=== PATIENT | female | born 1980 | race Caucasian/White ===

== ENCOUNTER 2018-01-19 00:48 | Emergency (ER) | payer MEDICARE, BC ==
[~2018-01-19] VITALS: Ht 172.7 cm; Wt 66.8 kg
[2018-01-19 00:50] VITALS: TEMP 97.6
[2018-01-19 01:22] LABS: COLLECTION METHOD CLEAN CATCH
[2018-01-19 01:26] LABS: BASO % 0.5 % (0.0-2.0); EOS # 0.2 (0.0-0.7); EOS % 3.8 % (0-4.0); GRAN % 54.7 % (42.2-75.2); LYMPH # 1.4 (1.2-3.4); LYMPH % 24.9 % (20.0-51.0); MEAN CELL VOLUME 88 fl (80.0-100.0); MEAN CORPUSCULAR HGB CONC 32 g/dl (33.0-37.0); MEAN PLATELET VOLUME 10.1 fl (7.4-10.4); MONO # 0.9 (0.1-0.6); MONO % 15.7 % (1.7-9.3); PLATELET COUNT 251 K/mm3 (130-400); RED BLOOD COUNT 4.14 M/mm3 (4.10-5.30); REDCELL DISTRIBUTION WIDTH-CV 17.2 % (11.5-14.5)
[2018-01-19 01:30] LABS: HEMATOCRIT 36.6 % (37.0-47.0); HEMOGLOBIN 11.8 g/dl (12.5-16.0); MEAN CORPUSCULAR HEMOGLOBIN 29 pg (27.0-31.0)
[2018-01-19 01:36] LABS: PH 6 (5-8); SQUAMOUS EPITHELIAL 0-2 /hpf; URINE APPEARANCE Clear; URINE BACTERIA None Seen /hpf; URINE BILIRUBIN Negative (NEGATIVE); URINE BLOOD Negative (NEGATIVE); URINE COLOR Yellow; URINE GLUCOSE Negative (NEGATIVE); URINE KETONE 1+ (NEGATIVE); URINE LEUKOCYTE ESTERASE Negative (NEGATIVE); URINE NITRATE Negative (NEGATIVE); URINE PROTEIN(semi-quant) Negative (NEGATIVE); URINE RBC 0-2 /hpf; URINE UROBILINOGEN Negative (NEGATIVE)
[2018-01-19 01:37] LABS: ALBUMIN 3.8 gm/dL (3.5-5.0); BILIRUBIN,TOTAL 0.2 mg/dL (0.0-1.0); CALCIUM 9.3 mg/dL (8.4-10.2); CREATININE, serum 0.96 mg/dL (0.52-1.25); POTASSIUM 3.7 mmol/L (3.4-5.0); TOTAL PROTEIN 7.2 gm/dL (6.4-8.2)
[2018-01-19] MEDS ORDERED: ELAVIL150 MG PO (03:21)
[2018-01-19] MEDS ORDERED: IMITREX50 MG PO (03:22)
[2018-01-19] MEDS ORDERED: TOPAMAX 100MG100 M1 PO (03:22)
[2018-01-19] MEDS ORDERED: INDERAL 10MG10 MG (03:22)
[2018-01-19] MEDS ORDERED: EPIPEN 2-PAK1 MG/ML IM (03:23)
[2018-01-19] MEDS ORDERED: PROAIR HFA0.09 MG/AC IH (03:24)
[2018-01-19] MEDS ORDERED: IPRATROPIUM BROM3 M1 IH (03:24)
[2018-01-19 04:01] VITALS: BP 117/81; PULSE 89
== END 2018-01-19 04:00 | disposition home or self-care (01) ==
LOC: COL.ER 00:48
PROVIDERS: Nurse Practitioner
DX: R10.9 Unspecified abdominal pain (principal); R30.0 Dysuria; J45.909 Unspecified asthma, uncomplicated; F32.9 Major depressive disorder, single episode, unspecified; G43.909 Migraine, unspecified, not intractable, without status migrainosus; F17.210 Nicotine dependence, cigarettes, uncomplicated; Z90.89 Acquired absence of other organs; Z90.49 Acquired absence of other specified parts of digestive tract; Z98.890 Other specified postprocedural states; Z98.84 Bariatric surgery status
CPT/HCPCS: J2405; J3010

== ENCOUNTER 2018-04-01 00:09 | Emergency (ER) | payer MEDICARE, BC ==
[~2018-04-01] VITALS: Ht 172.7 cm; Wt 65.0 kg
[~2018-04-01 00:09] MED LIST: ELAVIL150 MG PO; EPIPEN 2-PAK1 MG/ML IM; IMITREX50 MG PO; INDERAL 10MG10 MG; IPRATROPIUM BROM3 M1 IH; PROAIR HFA0.09 MG/AC IH; TOPAMAX 100MG100 M1 PO
[2018-04-01 01:52] LABS: COLLECTION METHOD CLEAN CATCH
[2018-04-01 02:04] LABS: MUCOUS Present /lpf; PH 5 (5-8); SQUAMOUS EPITHELIAL 0-2 /hpf; URINE APPEARANCE Clear; URINE BACTERIA Rare /hpf; URINE BILIRUBIN Negative (NEGATIVE); URINE BLOOD 1+ (NEGATIVE); URINE COLOR Yellow; URINE GLUCOSE Negative (NEGATIVE); URINE KETONE Negative (NEGATIVE); URINE LEUKOCYTE ESTERASE Trace (NEGATIVE); URINE NITRATE Negative (NEGATIVE); URINE PROTEIN(semi-quant) Negative (NEGATIVE); URINE RBC 0-2 /hpf; URINE UROBILINOGEN >=4.0 mg/dL (NEGATIVE)
[2018-04-01 02:14] LABS: BASO % 0.3 % (0.0-2.0); EOS # 0.2 (0.0-0.7); EOS % 3.7 % (0-4.0); GRAN # 3.7 (1.4-6.5); GRAN % 56.9 % (42.2-75.2); HEMOGLOBIN 11.4 g/dl (12.5-16.0); LYMPH % 30.7 % (20.0-51.0); MEAN CELL VOLUME 89 fl (80.0-100.0); MEAN CORPUSCULAR HEMOGLOBIN 29 pg (27.0-31.0); MEAN CORPUSCULAR HGB CONC 33 g/dl (33.0-37.0); MEAN PLATELET VOLUME 9.2 fl (7.4-10.4); MONO # 0.5 (0.1-0.6); MONO % 8.2 % (1.7-9.3); PLATELET COUNT 302 K/mm3 (130-400); RED BLOOD COUNT 3.91 M/mm3 (4.10-5.30)
[2018-04-01 02:18] LABS: HEMATOCRIT 34.6 % (37.0-47.0)
[2018-04-01 02:25] LABS: ALANINE AMINOTRANSFERASE 31 U/L (9-52); ALBUMIN 3.5 gm/dL (3.5-5.0); ALKALINE PHOSPHATASE 69 U/L (50-136); ANION GAP 11 mmol/L (7-16); AST,SGOT 40 U/L (15-37); BILIRUBIN,TOTAL 0.4 mg/dL (0.0-1.0); BLOOD UREA NITROGEN 15 mg/dL (7-17); CALCIUM 8.9 mg/dL (8.4-10.2); CARBON DIOXIDE 23 mmol/L (22-30); CHLORIDE 105 mmol/L (98-107); CREATININE, serum 0.67 mg/dL (0.52-1.25); GLUCOSE 91 mg/dL (74-106); POTASSIUM 3.4 mmol/L (3.4-5.0); SODIUM 139 mmol/L (137-145); TOTAL PROTEIN 6.6 gm/dL (6.4-8.2)
[2018-04-01 03:01] VITALS: BP 140/93; PULSE 69; TEMP 97.9
[2018-04-01 03:57] LABS: C-REACTIVE PROTEIN < 0.5 mg/dL (0.0-0.9)
== END 2018-04-01 03:07 | disposition home or self-care (01) ==
LOC: COL.ER 00:09
PROVIDERS: Nurse Practitioner
DX: R10.9 Unspecified abdominal pain (principal); G43.909 Migraine, unspecified, not intractable, without status migrainosus; F17.210 Nicotine dependence, cigarettes, uncomplicated

== ENCOUNTER 2018-12-04 12:49 | Emergency (ER) | payer MEDICARE ==
[~2018-12-04] VITALS: Ht 172.7 cm; Wt 65.9 kg
[~2018-12-04 12:49] MED LIST changes: +ASPI325T6 PO; +NEURONTIN300 MG/CAP PO; +NORVASC 5MG5 MG/TAB PO
[2018-12-04 12:54] VITALS: BP 130/81; TEMP 98
[2018-12-04] MEDS ORDERED: DOXYCYCLINE 10100 MG PO (13:36)
[2018-12-04 13:45] VITALS: PULSE 78
== END 2018-12-04 13:48 | disposition home or self-care (01) ==
LOC: COL.ER 12:49
DX: J01.90 Acute sinusitis, unspecified (principal); E11.9 Type 2 diabetes mellitus without complications; F17.210 Nicotine dependence, cigarettes, uncomplicated; I10 Essential (primary) hypertension; F32.9 Major depressive disorder, single episode, unspecified; Z98.84 Bariatric surgery status; Z98.890 Other specified postprocedural states; Z90.49 Acquired absence of other specified parts of digestive tract

== ENCOUNTER 2019-05-29 14:01 | Emergency (ER) | payer MEDICARE ==
[~2019-05-29] VITALS: Ht 172.7 cm; Wt 59.1 kg
[~2019-05-29 14:01] MED LIST changes: +DOXYCYCLINE 10100 MG PO
[2019-05-29 14:06] VITALS: BP 120/81; PULSE 72; TEMP 98.3
[2019-05-29] MEDS ORDERED: IBU800 M1 PO (14:28)
== END 2019-05-29 16:28 | disposition home or self-care (01) ==
LOC: COL.ER 14:01
DX: S63.602A Unspecified sprain of left thumb, initial encounter (principal); E11.9 Type 2 diabetes mellitus without complications; F32.9 Major depressive disorder, single episode, unspecified; F17.210 Nicotine dependence, cigarettes, uncomplicated; Z98.84 Bariatric surgery status; Z79.4 Long term (current) use of insulin; Z98.890 Other specified postprocedural states; W21.07XA Struck by softball, initial encounter; Y93.64 Activity, baseball

== ENCOUNTER 2019-06-16 01:28 | Emergency (ER) | payer MEDICARE ==
[~2019-06-16] VITALS: Ht 172.7 cm; Wt 61.4 kg
[~2019-06-16 01:28] MED LIST changes: +IBU800 M1 PO
[2019-06-16 01:32] VITALS: BP 137/95; PULSE 83
[2019-06-16 01:53] LABS: COLLECTION METHOD CLEAN CATCH
[2019-06-16 02:11] LABS: MUCOUS Present /lpf; PH 6 (5-8); SQUAMOUS EPITHELIAL 0-2 /hpf; URINE APPEARANCE Clear; URINE BACTERIA Many /hpf; URINE BILIRUBIN Negative (NEGATIVE); URINE BLOOD Negative (NEGATIVE); URINE COLOR Yellow; URINE GLUCOSE Negative (NEGATIVE); URINE KETONE Negative (NEGATIVE); URINE LEUKOCYTE ESTERASE Trace (NEGATIVE); URINE NITRATE Positive (NEGATIVE); URINE PROTEIN(semi-quant) Negative (NEGATIVE); URINE RBC 0-2 /hpf; URINE UROBILINOGEN Negative (NEGATIVE)
[2019-06-16] MEDS ORDERED: CEPHALEXIN500 M1 PO (02:28)
[2019-06-16] MEDS ORDERED: ZOFRAN ODT4 MG PO (02:28)
[2019-06-16] MEDS ORDERED: DIFLUCAN150 MG PO (02:41)
[2019-06-16 02:53] VITALS: TEMP 98.1
== END 2019-06-16 02:56 | disposition home or self-care (01) ==
LOC: COL.ER 01:28
PROVIDERS: Emergency Medicine
DX: N12 Tubulo-interstitial nephritis, not specified as acute or chronic (principal); N39.0 Urinary tract infection, site not specified; F17.210 Nicotine dependence, cigarettes, uncomplicated; I10 Essential (primary) hypertension; E11.9 Type 2 diabetes mellitus without complications; E78.5 Hyperlipidemia, unspecified; G43.909 Migraine, unspecified, not intractable, without status migrainosus; E66.9 Obesity, unspecified; Z98.84 Bariatric surgery status; Z98.890 Other specified postprocedural states; Z90.49 Acquired absence of other specified parts of digestive tract; Z68.20 Body mass index [BMI] 20.0-20.9, adult
CPT/HCPCS: J0696; J1885

== ENCOUNTER 2020-11-28 17:42 | Emergency (ER) | payer MEDICARE, MEDICAID ==
[~2020-11-28] VITALS: Ht 175.3 cm; Wt 62.7 kg
[~2020-11-28 17:42] MED LIST changes: +CEPHALEXIN500 M1 PO; +DIFLUCAN150 MG PO; +ZOFRAN ODT4 MG PO
[2020-11-28 17:52] VITALS: BP 124/89; TEMP 98.2
[2020-11-28 18:47] VITALS: PULSE 71
== END 2020-11-28 18:49 | disposition home or self-care (01) ==
LOC: COL.ER 17:42
DX: S61.217A Laceration without foreign body of left little finger without damage to nail, initial encounter (principal); Z88.2 Allergy status to sulfonamides; Z88.6 Allergy status to analgesic agent; Z88.8 Allergy status to other drugs, medicaments and biological substances; Z88.0 Allergy status to penicillin; W26.0XXA Contact with knife, initial encounter

== ENCOUNTER 2022-01-30 16:08 | Emergency (ER) | payer MEDICARE, MEDICAID ==
[~2022-01-30] VITALS: Ht 172.7 cm; Wt 64.5 kg
[2022-01-30 17:25] LABS: BASO % 0.7 % (0.0-2.0); EOS # 0.1 K/mm3 (0.0-0.7); EOS % 2.2 % (0.0-4.0); GRAN # 1.6 K/mm3 (1.4-6.5); GRAN % 58.1 % (42.2-75.2); LYMPH # 0.7 K/mm3 (1.2-3.4); LYMPH % 26.6 % (20.0-51.0); MEAN CELL VOLUME 63 fl (80.0-100.0); MEAN CORPUSCULAR HGB CONC 27 g/dl (33.0-37.0); MEAN PLATELET VOLUME 9.3 fl (7.4-10.4); MONO # 0.3 K/mm3 (0.1-0.6); PLATELET COUNT 383 K/mm3 (130-400); RED BLOOD COUNT 2.94 M/mm3 (4.10-5.30); REDCELL DISTRIBUTION WIDTH-CV 26.3 % (11.5-14.5)
[2022-01-30 17:31] LABS: HEMATOCRIT 18.5 % (37.0-47.0); MEAN CORPUSCULAR HEMOGLOBIN 17 pg (27-31)
[2022-01-30 17:32] LABS: HEMOGLOBIN 4.9 g/dl (12.5-16.0)
[2022-01-30 17:45] LABS: ALBUMIN 3.8 gm/dL (3.5-5.0); BILIRUBIN,TOTAL 0.3 mg/dL (0.2-1.2); CALCIUM 8.1 mg/dL (8.4-10.2); CREATININE, serum 0.8 mg/dL (0.57-1.11); POTASSIUM 3.8 mmol/L (3.5-4.5); TOTAL PROTEIN 6.5 gm/dL (6.2-8.1)
[2022-01-30 18:26] VITALS: BP 116/78; PULSE 72; TEMP 97.5
[2022-01-30 18:39] VITALS: BP 120/71; PULSE 77; TEMP 97.8
[2022-01-30 18:44] VITALS: BP 121/86; PULSE 79; TEMP 97.8
[2022-01-30 18:49] VITALS: BP 123/77; PULSE 81; TEMP 97.8
[2022-01-30 19:17] VITALS: BP 109/84; PULSE 79; TEMP 97.9
[2022-01-30 20:23] VITALS: BP 120/83; PULSE 65
== END 2022-01-30 20:23 | disposition home or self-care (01) ==
LOC: COL.ER 16:08
PROVIDERS: Physician Assistant
DX: D64.9 Anemia, unspecified (principal); Z91.040 Latex allergy status
CPT/HCPCS: J7030; P9016

== ENCOUNTER → 2022-03-14 | Outpatient (CLI) | payer MEDICARE, MEDICAID | LOC: MC.RAD 10:42 | DX: Z12.31 Encounter for screening mammogram for malignant neoplasm of breast (principal) ==

== ENCOUNTER 2022-05-04 23:10 | Emergency (ER) | payer MEDICARE, MEDICAID ==
[~2022-05-04] VITALS: Ht 175.3 cm; Wt 63.6 kg
[2022-05-04] MEDS ORDERED: REVIA 50MG TABL50 MG PO (23:39)
[2022-05-04] MEDS ORDERED: WELLBUTRIN XL300 M1 PO (23:39)
[2022-05-05 00:33] LABS: BASO % 0.4 % (0.0-2.0); EOS % 0.3 % (0.0-4.0); GRAN # 6.3 K/mm3 (1.4-6.5); GRAN % 84.6 % (42.2-75.2); LYMPH # 0.5 K/mm3 (1.2-3.4); MEAN CELL VOLUME 65 fl (80.0-100.0); MEAN CORPUSCULAR HGB CONC 28 g/dl (33.0-37.0); MONO # 0.5 K/mm3 (0.1-0.6); MONO % 7.2 % (1.7-9.3); PLATELET COUNT 87 K/mm3 (130-400); RED BLOOD COUNT 3.61 M/mm3 (4.10-5.30); REDCELL DISTRIBUTION WIDTH-CV 24.8 % (11.5-14.5)
[2022-05-05 00:34] LABS: HEMATOCRIT 23.3 % (37.0-47.0); HEMOGLOBIN 6.5 g/dl (12.5-16.0); MEAN CORPUSCULAR HEMOGLOBIN 18 pg (27-31)
[2022-05-05 00:43] LABS: ALBUMIN 3.5 gm/dL (3.5-5.0); BILIRUBIN,TOTAL 0.5 mg/dL (0.2-1.2); CALCIUM 8.8 mg/dL (8.4-10.2); CREATININE, serum 0.75 mg/dL (0.57-1.11); POTASSIUM 3.7 mmol/L (3.5-4.5); TOTAL PROTEIN 7.3 gm/dL (6.2-8.1)
[2022-05-05 01:03] LABS: COLLECTION METHOD CLEAN CATCH
[2022-05-05 01:13] LABS: PH 6 (5-8); SQUAMOUS EPITHELIAL 0-2 /hpf (0-10); URINE APPEARANCE Clear (CLEAR/HAZY); URINE BACTERIA Occasional /hpf (NONE SEEN); URINE BILIRUBIN Negative (NEGATIVE); URINE BLOOD 1+ (NEGATIVE); URINE COLOR Yellow (YELLOW); URINE GLUCOSE Negative (NEGATIVE); URINE KETONE 1+ (NEGATIVE); URINE LEUKOCYTE ESTERASE Trace (NEGATIVE); URINE NITRATE Negative (NEGATIVE); URINE PROTEIN(semi-quant) Negative (NEGATIVE); URINE RBC 0-2 /hpf (0-2); URINE UROBILINOGEN Negative (NEGATIVE)
[2022-05-05] MEDS ORDERED: CEPHALEXIN500 M1 PO (02:22)
[2022-05-05 02:50] VITALS: BP 106/73; PULSE 75; TEMP 98
[2022-05-05 03:08] VITALS: BP 107/75; PULSE 73; TEMP 98
[2022-05-05 03:25] VITALS: BP 108/79; PULSE 75; TEMP 98
[2022-05-05 04:00] VITALS: BP 105/75; PULSE 69; TEMP 98
[2022-05-05 04:35] VITALS: BP 108/75; PULSE 78; TEMP 98
== END 2022-05-05 04:00 | disposition home or self-care (01) ==
LOC: COL.ER 23:10
PROVIDERS: Emergency Medicine
DX: D64.9 Anemia, unspecified (principal); D69.6 Thrombocytopenia, unspecified; N39.0 Urinary tract infection, site not specified; Z91.040 Latex allergy status; Z88.0 Allergy status to penicillin; Z20.822 Contact with and (suspected) exposure to COVID-19
CPT/HCPCS: P9016

== ENCOUNTER 2022-06-23 10:55 | Emergency (ER) | payer MEDICARE, MEDICAID ==
[~2022-06-23] VITALS: Ht 175.3 cm; Wt 61.4 kg
[~2022-06-23 10:55] MED LIST changes: +REVIA 50MG TABL50 MG PO; +WELLBUTRIN XL300 M1 PO
[2022-06-23 11:09] VITALS: TEMP 98.1
[2022-06-23 11:39] LABS: COLLECTION METHOD CLEAN CATCH
[2022-06-23 11:40] LABS: BASO % 0.4 % (0.0-2.0); EOS # 0.4 K/mm3 (0.0-0.7); EOS % 4.7 % (0.0-4.0); GRAN # 6.4 K/mm3 (1.4-6.5); LYMPH % 12.3 % (20.0-51.0); MEAN CELL VOLUME 72 fl (80.0-100.0); MEAN CORPUSCULAR HGB CONC 29 g/dl (33.0-37.0); MEAN PLATELET VOLUME 9.3 fl (7.4-10.4); MONO # 0.5 K/mm3 (0.1-0.6); MONO % 6.2 % (1.7-9.3); PLATELET COUNT 431 K/mm3 (130-400); RED BLOOD COUNT 4.29 M/mm3 (4.10-5.30); REDCELL DISTRIBUTION WIDTH-CV 25.5 % (11.5-14.5)
[2022-06-23 11:42] LABS: HEMATOCRIT 30.9 % (37.0-47.0); HEMOGLOBIN 8.8 g/dl (12.5-16.0); MEAN CORPUSCULAR HEMOGLOBIN 21 pg (27-31)
[2022-06-23 11:53] LABS: ALANINE AMINOTRANSFERASE 8 U/L (0-55); ALBUMIN 3.5 gm/dL (3.5-5.0); ALKALINE PHOSPHATASE 68 U/L (40-150); ANION GAP 10 mmol/L (7-16); AST,SGOT 12 U/L (5-34); BILIRUBIN,TOTAL 0.3 mg/dL (0.2-1.2); BLOOD UREA NITROGEN 11 mg/dL (7-19); CALCIUM 9.3 mg/dL (8.4-10.2); CARBON DIOXIDE 19 mmol/L (22-29); CHLORIDE 110 mmol/L (98-107); CREATININE, serum 0.79 mg/dL (0.57-1.11); GLUCOSE 86 mg/dL (70-99); LIPASE 37 U/L (8-78); POTASSIUM 3.6 mmol/L (3.5-4.5); SODIUM 139 mmol/L (136-145); TOTAL PROTEIN 7.5 gm/dL (6.2-8.1)
[2022-06-23 12:05] LABS: TROPONIN-I < 0.010 ng/mL (0.00-0.033)
[2022-06-23 12:08] LABS: URINE APPEARANCE Hazy (CLEAR/HAZY); URINE BLOOD TRACE-INTACT (NEGATIVE); URINE COLOR Yellow (YELLOW); URINE GLUCOSE Negative (NEGATIVE); URINE KETONE Negative (NEGATIVE); URINE NITRATE Positive (NEGATIVE); URINE PROTEIN(semi-quant) Negative (NEGATIVE); URINE UROBILINOGEN 0.2 E.U/dL (0.2-1.0)
[2022-06-23 12:12] LABS: MUCOUS Present (NOT PRESENT); URINE BACTERIA Rare /hpf (NONE SEEN); URINE RBC 0-2 /hpf (0-2)
[2022-06-23] MEDS ORDERED: CEPHALEXIN500 M1 PO (14:02)
[2022-06-23 14:09] VITALS: BP 122/77; PULSE 77
== END 2022-06-23 14:10 | disposition home or self-care (01) ==
LOC: COL.ER 10:55
PROVIDERS: Emergency Medicine
DX: N39.0 Urinary tract infection, site not specified (principal); D64.9 Anemia, unspecified; M54.50 Low back pain, unspecified; Z20.822 Contact with and (suspected) exposure to COVID-19; Z91.040 Latex allergy status; Z88.2 Allergy status to sulfonamides
CPT/HCPCS: J0696; Q9967